=== PATIENT | male | born 1960 | race Caucasian/White ===

== ENCOUNTER → 2016-12-16 | Outpatient (CLI) | payer OTHER ==
--- NOTE | 2016-12-16 09:54 | REP ---
Clinical: Right hip pain. Technique: Axial noncontrast images of the pelvis with coronal and sagittal re-formations. Findings: Facet arthropathy is appreciated at the L4-5 and L5-S1 levels and small posterior disc bulges cannot be excluded. Mild chronic sacroiliitis includes periarticular sclerosis and small osteophyte formation (left greater than right). The bilateral hip joints demonstrate mild to moderate symmetric joint space narrowing and very subtle cortical irregularity along the superior acetabular rim. Acetabulum and femoral heads otherwise demonstrate normal contours and the subchondral bony architecture appears normal and without significant heterogeneity or arthritic/cystic changes. Mild enthesopathy is noted along the superior iliac iliac crests. There is no evidence for acute or healed fracture. Impression: Mild degenerative changes as described above. Signed by Alexis Gan MD 12/16/2016 09:45 A
== END ==
LOC: M RAD 07:36
PROVIDERS: ATTEND Orthopaedic Surgery
DX: M25.551 Pain in right hip (principal); M12.9 Arthropathy, unspecified; M46.1 Sacroiliitis, not elsewhere classified; M25.752 Osteophyte, left hip; M25.751 Osteophyte, right hip

== ENCOUNTER → 2021-03-05 | Outpatient (CLI) | payer OTHER ==
--- NOTE | 2021-03-05 22:30 | REPVR ---
PROCEDURE INFORMATION: Exam: MR Lumbar Spine Without Contrast Exam date and time: 03/05/2021 2:07 PM Age: 61 years old Clinical indication: Low back pain TECHNIQUE: Imaging protocol: Multiplanar magnetic resonance images of the lumbar spine without intravenous contrast. COMPARISON: CT Pelvis without contrast 12/16/2016 7:47 AM FINDINGS: Vertebral body heights are maintained. No abnormal marrow signal. No cord compression. No abnormal cord signal. Conus medullaris terminates at the L1 level. 0.4 cm grade 1 anterolisthesis of L4 on L5. Paravertebral soft tissues are unremarkable. L1-L2: No significant canal or foraminal narrowing. L2-L3: Facet hypertrophy causes mild bilateral foraminal narrowing. No significant canal narrowing. L3-L4: Facet hypertrophy causes mild bilateral foraminal narrowing. No significant canal narrowing. L4-L5: Combination of anterolisthesis, broad-based disc bulge, and facet hypertrophy cause mild canal narrowing and mild bilateral foraminal narrowing. L5-S1: No significant canal or foraminal narrowing. IMPRESSION: Mild spondylotic changes of the lumbar spine, as detailed above. Electronically signed by: Tyson Hicks On 03/05/2021 22:29:22 PM
== END ==
LOC: M PLAIMG 12:56
PROVIDERS: ATTEND Family Medicine
DX: M47.816 Spondylosis without myelopathy or radiculopathy, lumbar region (principal); M54.5 Low back pain

== ENCOUNTER → 2024-02-28 | Outpatient (REF) | LOC: M PLAIMG 15:44 | PROVIDERS: ATTEND Family Medicine | DX: R52 Pain, unspecified (principal) ==